=== PATIENT | female | born 1980 | race Caucasian/White ===

== ENCOUNTER 2018-09-11 18:34 | Emergency (ER) | payer BC ==
[~2018-09-11] VITALS: Ht 170.2 cm; Wt 94.5 kg
[~2018-09-11 18:34] MED LIST: MOTRIN 600600 MG/TAB PO; PERCOCET 325 MG1 TA2 PO; PRENATAL1 TA1; SENOKOT S 50 MG1 TAB
[2018-09-11 18:49] VITALS: TEMP 98.2
[2018-09-11] MEDS ORDERED: WELLBUTRIN SR150 M1 (19:02)
[2018-09-11] MEDS ORDERED: NUVIGIL150 MG (19:03)
[2018-09-11 20:06] VITALS: BP 122/92; PULSE 63
== END 2018-09-11 20:08 | disposition home or self-care (01) ==
LOC: COL.ER 18:34
DX: K21.9 Gastro-esophageal reflux disease without esophagitis (principal); F90.9 Attention-deficit hyperactivity disorder, unspecified type; F41.9 Anxiety disorder, unspecified; E11.9 Type 2 diabetes mellitus without complications; Z98.890 Other specified postprocedural states

== ENCOUNTER 2023-06-10 13:43 | Emergency (ER) | payer BC ==
[~2023-06-10] VITALS: Ht 162.6 cm; Wt 100.9 kg
[~2023-06-10 13:43] MED LIST changes: +NUVIGIL150 MG; +WELLBUTRIN SR150 M1
[2023-06-10 13:49] VITALS: TEMP 98.2
[2023-06-10 14:16] LABS: BASO % 0.6 % (0.0-2.0); EOS # 0.2 K/mm3 (0.0-0.7); EOS % 3.2 % (0.0-4.0); GRAN # 4.1 K/mm3 (1.4-6.5); GRAN % 57.6 % (42.2-75.2); HEMATOCRIT 43.4 % (37.0-47.0); HEMOGLOBIN 14.7 g/dl (12.5-16.0); LYMPH # 2.1 K/mm3 (1.2-3.4); LYMPH % 30.1 % (20.0-51.0); MEAN CELL VOLUME 93 fl (80.0-100.0); MEAN CORPUSCULAR HEMOGLOBIN 32 pg (27-31); MEAN CORPUSCULAR HGB CONC 34 g/dl (33.0-37.0); MONO # 0.6 K/mm3 (0.1-0.6); MONO % 8.2 % (1.7-9.3); PLATELET COUNT 216 K/mm3 (130-400); RED BLOOD COUNT 4.66 M/mm3 (4.10-5.30); REDCELL DISTRIBUTION WIDTH-CV 12.2 % (11.5-14.5)
[2023-06-10 14:23] LABS: INR 1.1 (0.8-3.0); PROTHROMBIN TIME 11.7 SECONDS (9.7-12.8)
[2023-06-10 14:26] LABS: PARTIAL THROMBOPLASTIN TIME 44.2 SECONDS (26.0-37.0)
[2023-06-10 14:34] LABS: ALANINE AMINOTRANSFERASE 20 U/L (0-55); ALBUMIN 4.5 gm/dL (3.5-5.0); ALKALINE PHOSPHATASE 50 U/L (40-150); ANION GAP 12 mmol/L (7-16); AST,SGOT 16 U/L (5-34); BILIRUBIN,TOTAL 0.5 mg/dL (0.2-1.2); BLOOD UREA NITROGEN 19 mg/dL (7-19); CALCIUM 9.8 mg/dL (8.4-10.2); CARBON DIOXIDE 21 mmol/L (22-29); CHLORIDE 107 mmol/L (98-107); GLUCOSE 83 mg/dL (70-99); POTASSIUM 3.9 mmol/L (3.5-4.5); SODIUM 140 mmol/L (136-145); TOTAL PROTEIN 7.4 gm/dL (6.2-8.1)
[2023-06-10 14:46] LABS: TROPONIN-I < 0.010 ng/mL (0.00-0.033)
[2023-06-10 17:09] VITALS: BP 124/85; PULSE 73
== END 2023-06-10 17:16 | disposition home or self-care (01) ==
LOC: COL.ER 13:43
PROVIDERS: Family Medicine
DX: R07.89 Other chest pain (principal); Z82.49 Family history of ischemic heart disease and other diseases of the circulatory system
CPT/HCPCS: J1885